=== PATIENT | female | born 1985 | race Caucasian/White ===

== ENCOUNTER 2020-08-28 14:31 | Outpatient (REF) | payer OTHER, SELFPAY ==
[2020-09-03 13:31] LABS: HPV mRNA E6/E7 rflx Not Detected (Not Detected)
== END 2020-08-28 14:32 | disposition home or self-care (01) ==
LOC: HO.LAB 14:31
PROVIDERS: PCP Internal Medicine; Visit Provider Obstetrics & Gynecology
DX: Z01.419 Encounter for gynecological examination (general) (routine) without abnormal findings (principal)
CPT/HCPCS: 36415; 87624; 88142

== ENCOUNTER 2020-12-29 00:31 | Emergency (ER) | payer OTHER, SELFPAY ==
--- NOTE | 2020-12-29 | ECG_ITS ---
Test Reason : CHEST PAIN Blood Pressure : / mmHG Vent. Rate : 072 BPM Atrial Rate : 072 BPM P-R Int : 122 ms QRS Dur : 078 ms QT Int : 414 ms P-R-T Axes : 057 024 009 degrees QTc Int : 453 ms Normal sinus rhythm Nonspecific ST and T wave abnormality Abnormal ECG When compared with ECG of 15-MAR-2017 21:49, No significant change was found Referred By: Generic ED Physician Electronically Signed By:MARIJA LUCIO
--- NOTE | ~2020-12-29 | US_ITS ---
EXAMINATION: US ABDOMEN LIMITED CLINICAL INFORMATION: Right upper quadrant pain for 4 hours.. COMPARISON: 09/29/2017 TECHNIQUE: Real-time imaging of the right upper quadrant abdominal viscera. FINDINGS: PANCREAS: Visualized portions unremarkable; tail obscured by interposed bowel gas. LIVER: Normal. The liver is normal in size. The liver contour is normal. Parenchymal echogenicity is normal. No focal hepatic lesion. There is no intrahepatic biliary duct dilatation seen. GALLBLADDER: Completely filled with gallstones exhibiting a wall echo shadow complex. No gallbladder wall thickening pericholecystic fluid. COMMON BILE DUCT: Normal in caliber measuring 0.4 cm in diameter. RIGHT KIDNEY: Normal. No hydronephrosis. No renal calculi or focal parenchymal lesions. The kidney measures 9.3 cm in maximum dimension. FREE FLUID: None. US/US abdomen limited IMPRESSION: * Cholelithiasis without sonographic evidence of cholecystitis. * There is tenderness to sonographic palpation within the right upper quadrant and epigastric region which is nonspecific.
[2020-12-29 00:45] VITALS: BP 123/69; PULSE 77; RESP 16; TEMP 36.8; O2SAT 99; BMI 25.9
[2020-12-29 01:05] VITALS: RESP 18
--- NOTE | 2020-12-29 01:17 | ED.CHESTPAIN ---
HPI - Chest Pain General Chief Complaint: Chest Pain Stated Complaint: chest pains for >3 hours Time Seen by Provider: 12/29/20 01:17 Source: patient Mode of arrival: ambulatory History of Present Illness HPI narrative: This is a 35-year-old female with known cholelithiasis and presents with severe epigastric pain with onset approximately 3 hours prior to arrival and she describes radiation along the subdiaphragmatic distribution bilaterally and states that this is sharp in nature and has occurred before. She states that these episodes typically occur approximately 2-3 hours after eating the evening meal. She denies any association with fever, chills, nausea, vomiting, and denies any urinary pain/burning/frequency. Patient states that she is completely asymptomatic at present. Related Data Home Medications Medication Instructions Recorded Confirmed levonorgestrel 20 mcg/24 hours (6 INTRAUTERINE 08/28/20 yrs) 52 mg intrauterine device Allergies Allergy/AdvReac Type Severity Reaction Status Date / Time No Known Allergies Allergy Mild NONE Verified 08/28/20 14:44 Flexeril AdvReac Unknown heart Uncoded 12/29/20 01:22 palpitations Review of Systems Review of Systems: Pertinent positives and negatives as stated in HPI 10 point review of systems is otherwise negative. PMFSH Past Medical History Source: nursing notes reviewed Medical History HGSIL (high grade squamous intraepithelial dysplasia) Social History Social History Smoked in Last 30 Days: No Use of substances other than those prescribed or required for medical reasons: No Advance Directives: No Advance Directives Information Provided: No Patient : No Physical Exam Vital Signs: Vital Signs: Last Vital Signs Temp 98.0 F 12/29/20 03:47 Pulse 78 12/29/20 03:47 Resp 18 12/29/20 03:47 BP 123/66 12/29/20 03:47 Pulse Ox 99 12/29/20 03:47 Body Mass Index 25.9 VITAL SIGNS: Reviewed. GENERAL: Well developed, well nourished, in no acute distress. HEAD: Normocephalic/atraumatic EYES: PERRLA, EOMI OROPHARYNX: no oral lesions noted, posterior pharynx clear NECK: Supple, no adenopathy LUNGS: Normal breath sounds. No adventitious sounds or accessory muscle use. SpO2<99> CARDIOVASCULAR: Regular rate and rhythm without noted murmurs ABDOMEN: Soft, non-tender, non-distended with bowel sounds. NEUROLOGIC: Alert and oriented x 4. Course Course Course Narrative: This is a 35-year-old female with history and clinical presentation suggestive of pancreatitis, cholecystitis, acid reflux/gastritis. On review of all investigations again is demonstrated cholelithiasis and the noted elevation of LFTs likely secondary to transient blockage that has since been relieved, patient is currently completely asymptomatic and there are no evidence of cholecystitis on ultrasound. Patient will be discharged home with strict instructions to follow-up with surgery to set up an elective removal of her gallbladder. MDM - Chest Pain Lab Data Result diagrams: 12/29/20 01:14 12/29/20 01:14 Labs: Lab Results 12/29/20 12/29/20 12/29/20 Range/Units 01:14 01:14 01:14 WBC 7.2 (4.8-10.8) X10*3/uL RBC 4.57 (4.20-5.50) X10*6/uL Hgb 14.2 (12.0-16.0) g/dl Hct 42.5 (37-47) % MCV 93.0 (80-98) fL MCH 31.1 (27.0-33.0) pg MCHC 33.4 (31.0-35.0) g/dl RDW 12.5 (11.0-16.0) % Plt Count 271 (160-400) X10*3/uL MPV 10.2 (9.4-12.3) fL Immature Gran % (Auto) 0.3 (0.0-0.4) % Neut % (Auto) 77.8 H (45-73) % Lymph % (Auto) 13.6 L (20-40) % Pitkin % (Auto) 7.1 (2-11) % Eos % (Auto) 0.6 (0-4) % Baso % (Auto) 0.6 (0-2) % Lymph # (Auto) 1.0 L (1.2-4.9) X10*3/uL Pitkin # (Auto) 0.5 (0.1-1.2) X10*3/uL Eos # (Auto) 0.0 (0.0-0.4) X10*3/uL Baso # (Auto) 0.0 (0.0-0.2) X10*3/uL Abs Immat Gran (auto) 0.02 (0.00-0.03) X10*3/uL Absolute Neuts (auto) 5.6 (2.0-8.3) X10*3/uL Absolute Nucleated RBC 0.000 (0.0-0.012) X10*3/uL Nucleated RBC % (auto) 0.0 (0.0-0.2) /100WBC Sodium 142 (135-145) mmol/L Potassium 3.8 (3.3-5.1) mmol/L Chloride 104 (96-108) mmol/L Carbon Dioxide 29 (22-29) mmol/L Anion Gap 13 (12-20) BUN 9 (9-16) mg/dL Creatinine 0.93 (0.5-1.4) mg/dL Estim Creat Clear Calc 67.8 Estimated GFR > 60 Random Glucose 113 (60-115) mg/dL Calcium 9.6 (8.4-10.2) mg/dL Total Bilirubin 1.1 H (0.0-1.0) mg/dL AST 215 H (5-31) U/L ALT 114 H (0-31) U/L Alkaline Phosphatase 96 (39-117) U/L Troponin I High Sens < 3.5 (<3.5-17.0) ng/L Total Protein 7.5 (6.5-8.0) g/dL Albumin 4.5 (3.5-5.0) g/dL Lipase 39 (8-78) U/L Urine Color Urine Appearance Urine pH (5.0-8.0) Ur Specific [place] (1.005-1.025) Urine Protein (NEG-TRACE) MG/DL Urine Glucose (UA) (NEG) MG/DL Urine Ketones (NEG) MG/DL Urine Blood (NEG) Urine Nitrite (NEG) Ur Leukocyte Esterase (NEG) Urine Test (NEGATIVE) 12/29/20 12/29/20 Range/Units 03:45 03:45 WBC (4.8-10.8) X10*3/uL RBC (4.20-5.50) X10*6/uL Hgb (12.0-16.0) g/dl Hct (37-47) % MCV (80-98) fL MCH (27.0-33.0) pg MCHC (31.0-35.0) g/dl RDW (11.0-16.0) % Plt Count (160-400) X10*3/uL MPV (9.4-12.3) fL Immature Gran % (Auto) (0.0-0.4) % Neut % (Auto) (45-73) % Lymph % (Auto) (20-40) % [place]kin % (Auto) (2-11) % Eos % (Auto) (0-4) % Baso % (Auto) (0-2) % Lymph # (Auto) (1.2-4.9) X10*3/uL [place]kin # (Auto) (0.1-1.2) X10*3/uL Eos # (Auto) (0.0-0.4) X10*3/uL Baso # (Auto) (0.0-0.2) X10*3/uL Abs Immat Gran (auto) (0.00-0.03) X10*3/uL Absolute Neuts (auto) (2.0-8.3) X10*3/uL Absolute Nucleated RBC (0.0-0.012) X10*3/uL Nucleated RBC % (auto) (0.0-0.2) /100WBC Sodium (135-145) mmol/L Potassium (3.3-5.1) mmol/L Chloride (96-108) mmol/L Carbon Dioxide (22-29) mmol/L Anion Gap (12-20) BUN (9-16) mg/dL Creatinine (0.5-1.4) mg/dL Estim Creat Clear Calc Estimated GFR Random Glucose (60-115) mg/dL Calcium (8.4-10.2) mg/dL Total Bilirubin (0.0-1.0) mg/dL AST (5-31) U/L ALT (0-31) U/L Alkaline Phosphatase (39-117) U/L Troponin I High Sens (<3.5-17.0) ng/L Total Protein (6.5-8.0) g/dL Albumin (3.5-5.0) g/dL Lipase (8-78) U/L Urine Color YELLOW Urine Appearance CLEAR Urine pH 8.5 H (5.0-8.0) Ur Specific [place] 1.015 (1.005-1.025) Urine Protein NEG (NEG-TRACE) MG/DL Urine Glucose (UA) NEG (NEG) MG/DL Urine Ketones NEG (NEG) MG/DL Urine Blood NEG (NEG) Urine Nitrite NEG (NEG) Ur Leukocyte Esterase NEG (NEG) Urine Test NEGATIVE (NEGATIVE) ECG Data ECG #1: Attestation: I personally reviewed and interpreted this ECG as follows: Prior ECG tracings: available for review (03/15/2017 no acute changes on comparison) Interpretation: Normal sinus rhythm, HR-72, no evidence of acute ischemia, TX/QRS/QTC are within normal limits Discharge Plan Discharge Clinical Impression: Cholelithiasis, Biliary colic Patient Disposition: Home, Self-Care Instructions: Biliary Colic (ED), Gallstones (ED) Additional Instructions: 1. Resume all home medications as prescribed. 2. Increase your fluid hydration especially with water and avoid all fatty meals as much as possible. 3. Recommend following up with surgery, a referrals provided to you below for planned removal of your gallbladder. 4. Please follow-up with your primary care provider in the next 2-3 days for re-evaluation. Return to the ER for acute worsening of symptoms. Prescriptions: No Action Mirena 20 mcg/24 hours (6 yrs) 52 mg intrauterine device intrauterine RF: 0 Referrals: Vero Rabago MD [Primary Care Provider] - 2 days John Pedroza MD [Physician] - 2 days (Patient with cholelithiasis that would likely benefit from elective cholecystectomy.)
[2020-12-29 01:19] LABS: MANUAL DIFF FLAG NO
[2020-12-29 01:20] LABS: Basophils Percent Auto 0.6 % (0-2); Eosinophils Percent Auto 0.6 % (0-4); Hematocrit 42.5 % (37-47); Hemoglobin 14.2 g/dl (12.0-16.0); Imm Gran Abs Auto 0.02 X10*3/uL (0.00-0.03); Imm Gran Pct Auto 0.3 % (0.0-0.4); Lymphocytes Percent Auto 13.6 % (20-40); Mean Corpuscular HGB Conc 33.4 g/dl (31.0-35.0); Mean Corpuscular Hemoglobin 31.1 pg (27.0-33.0); Mean Platelet Volume 10.2 fL (9.4-12.3); Monocytes Absolute Auto 0.5 X10*3/uL (0.1-1.2); Monocytes Percent Auto 7.1 % (2-11); Neutrophils Absolute Auto 5.6 X10*3/uL (2.0-8.3); Neutrophils Percent Auto 77.8 % (45-73); Platelet Count 271 X10*3/uL (160-400); Red Blood Count 4.57 X10*6/uL (4.20-5.50); Red Cell Distribution Width 12.5 % (11.0-16.0); White Blood Count 7.2 X10*3/uL (4.8-10.8)
[2020-12-29 01:53] LABS: Alanine Aminotransferase 114 U/L (0-31); Albumin Level 4.5 g/dL (3.5-5.0); Alkaline Phosphatase 96 U/L (39-117); Anion Gap 13 (12-20); Aspartate Amino Transferase 215 U/L (5-31); Bilirubin Total 1.1 mg/dL (0.0-1.0); Blood Urea Nitrogen 9 mg/dL (9-16); Calcium 9.6 mg/dL (8.4-10.2); Carbon Dioxide 29 mmol/L (22-29); Chloride 104 mmol/L (96-108); Creatinine Clr Calc Pharmacy 67.8; Estimated Glomerular Filt Rate > 60; Glucose Random 113 mg/dL (60-115); Potassium 3.8 mmol/L (3.3-5.1); Sodium 142 mmol/L (135-145); Total Protein 7.5 g/dL (6.5-8.0)
[2020-12-29 01:54] LABS: Troponin-I High Sensitivity < 3.5 ng/L (<3.5-17.0)
[2020-12-29 02:30] LABS: Lipase 39 U/L (8-78)
[2020-12-29 03:47] VITALS: BP 123/66; PULSE 78; RESP 18; TEMP 36.7; O2SAT 99
[2020-12-29 03:52] LABS: Glucose Urine UA NEG (NEG); Leukocyte Esterase Urine NEG (NEG); Nitrite Urine NEG (NEG); PH 8.5 (5.0-8.0); Specific Gravity - Urine 1.015 (1.005-1.025); Urine Blood NEG (NEG); Urine Ketones NEG (NEG); Urine Protein NEG (NEG-TRACE)
[2020-12-29 03:53] LABS: Appearance Urine CLEAR; Color Urine YELLOW
[2020-12-29 03:54] LABS: UPreg QC Valid YES; Urine Pregnancy NEGATIVE (NEGATIVE)
[2020-12-29] MEDS: Magnesium Hydrox/Alum Hydrox 30 ML ORAL.SUSP PO (04:41)
== END 2020-12-29 04:51 | disposition home or self-care (01) ==
PROVIDERS: Emergency Provider Student in an Organized Health Care Education/Training Program; PCP Internal Medicine
DX: K80.70 Calculus of gallbladder and bile duct without cholecystitis without obstruction (principal)
CPT/HCPCS: 36415; 76705; 80053; 81003; 81025; 83690; 84484; 85025; 93005; 99284; 99285

== ENCOUNTER → 2021-01-14 15:36 | Outpatient (BNVA) | payer OTHER, SELFPAY | PROVIDERS: PCP Internal Medicine; Visit Provider Surgery | DX: K80.20 Calculus of gallbladder without cholecystitis without obstruction (principal) | CPT/HCPCS: 99202 ==

== ENCOUNTER 2021-01-29 06:07 | Day surgery (SDC) | payer OTHER, SELFPAY ==
[2021-01-22 13:12] VITALS: BMI 27.8
--- NOTE | 2021-01-28 08:26 | HO.ANESPROP2 ---
Documented by User: Vaishali Schuster 01/28/21 08:28 HPI - Anesthesia Eval Consult details Narrative: 35yo F for Cholecystectomy Laparoscopic PMFSH Active Problems Active Problems: All Active Problems (Updated 01/15/21 @ 13:05 by John Pedroza MD) Well woman exam (Acute) Symptomatic cholelithiasis (Acute) Past Medical History Medical History HGSIL (high grade squamous intraepithelial dysplasia) PVC (premature ventricular contraction) Surgical History Surgical History H/O LEEP Social History Social History Alcohol intake: current Alcohol intake frequency: holidays/special occasions only Are you DNR?: No Advance Directives: No Advance Directives Information Provided: No Advance Directives on File: No Meds Allergies Allergy/AdvReac Type Severity Reaction Status Date / Time Flexeril AdvReac Unknown Nausea Uncoded 01/29/21 06:26 Home Medications Medication Instructions Recorded Confirmed Last Taken Type levonorgestrel 20 mcg/24 hours (6 INTRAUTERINE 08/28/20 Unknown History yrs) 52 mg intrauterine device lorazepam 1 tab PO NEEDED 01/22/21 01/22/21 Unknown History Exam Exam Date and Time: January 28, 2021 0826 Height,Weight and Vital Signs: Height 4 ft 11 in Weight 62.454 kg Pertinent Lab Results Pertinent Lab Results: Laboratory Tests 12/29/20 12/29/20 01:14 01:14 WBC 7.2 Hgb 14.2 Hct 42.5 Plt Count 271 Sodium 142 Potassium 3.8 Chloride 104 Carbon Dioxide 29 BUN 9 Creatinine 0.93 Narrative Narrative: EKG 12/2020 Vent. Rate : 072 BPM Atrial Rate : 072 BPM P-R Int : 122 ms QRS Dur : 078 ms QT Int : 414 ms P-R-T Axes : 057 024 009 degrees QTc Int : 453 ms Normal sinus rhythm Nonspecific ST and T wave abnormality Abnormal ECG When compared with ECG of 15-MAR-2017 21:49, No significant change was found Assessment and Plan Assessment Anesthesia Assessment: Chart Reviewed Documented by User: Sera Kay 01/29/21 07:51 PMFSH Past Medical History Medical History HGSIL (high grade squamous intraepithelial dysplasia) PVC (premature ventricular contraction) Surgical History Surgical History H/O LEEP Social History Social History Alcohol intake: current Alcohol intake frequency: holidays/special occasions only Are you DNR?: No Advance Directives: No Advance Directives Information Provided: No Advance Directives on File: No Meds Allergies Allergy/AdvReac Type Severity Reaction Status Date / Time Flexeril AdvReac Unknown Nausea Uncoded 01/29/21 06:26 Home Medications Medication Instructions Recorded Confirmed Last Taken Type levonorgestrel 20 mcg/24 hours (6 INTRAUTERINE 08/28/20 Unknown History yrs) 52 mg intrauterine device lorazepam 1 tab PO NEEDED 01/22/21 01/22/21 Unknown History Exam Airway Mallampati Class: II TM Dist: <=3cm Neck ROM: Full Assessment and Plan Assessment Anesthesia Assessment: Anesthesia Plan Discussed and Chart Reviewed Final Anesthetic Review NPO: Yes ASA Class: II Final Preanesthetic Review: No Changes in Pt Med Stat, Meds/Allgs Chart Reviewed, Consent Obtained/Reviewed and Anes Risks/Benef Reviewed Patient Risk: Low Procedure Risk: Low Assessment/Block/Sedation in SS: Assess/Block/Sedation-SS Anesthetic Plan Anesthetic Plan: GA Disposition: Standard PACU
[2021-01-29 06:31] VITALS: BP 128/75; PULSE 75; RESP 16; TEMP 36.3; O2SAT 98
[2021-01-29 06:40] LABS: UPreg QC Valid YES; Urine Pregnancy NEGATIVE (NEGATIVE)
[2021-01-29] MEDS: Lactated Ringers 1,000 ML 100 ML IVCONT (06:45)
--- NOTE | 2021-01-29 07:10 | MHC.SHP ---
Pre-Procedural Eval Section A Date of Service: 01/29/21 The patient is an INPATIENT: No Changes since office visit: Yes Patient answered all questions; No Cold of Flu in the past 2 weeks, No New Medical Problems and No Changes in Medication The History & Physical has been completed within 30 days and I have reviewed it.: Yes Section B Chief Complaint: Symptomatic Cholelithiasis Allergies: Allergies Allergy/AdvReac Type Severity Reaction Status Date / Time Flexeril AdvReac Unknown Nausea Uncoded 01/29/21 06:26 Plan Diagnosis/Plan: Unchanged I have reviewed the history and physical and performed a pertinent physical examination on my patient. No changes have occurred unless specified.
--- NOTE | 2021-01-29 09:01 | P.OP_ITS ---
Operative Note Operative Note Date of Service: 01/29/21 Narrative: Preoperative diagnosis: Symptomatic cholelithiasis Postoperative diagnosis: Acute cholecystitis, cholelithiasis; right upper quadrant adhesions Procedure: Laparoscopic cholecystectomy Surgeon: John Pedroza MD Irrigation Specialist: No physician Anesthesia: General endotracheal Indications for procedure: 35-year-old female patient presenting with complaints of abdominal pain in the right upper quadrant associated with fatty food intake. The patient underwent evaluation with ultrasound which revealed gallstones within the gallbladder. Findings were suggestive of symptomatic cholelithiasis. Operative findings: Patient was found to have dense adhesions to the liver from the mesentery of the transverse colon which required lysis. The gallbladder was edematous with an impacted stone at the neck of the gallbladder. Specimen: Gallbladder Estimated blood loss: 10 mL Complications: None Procedure details: Patient was brought to the OR and placed in a supine position. After administering general anesthesia the patient's abdomen was prepped with ChloraPrep and draped in a sterile fashion. Local anesthesia consisting of 0.25% Sensorcaine with epinephrine was infiltrated in a periumbilical region. A 5 mm incision was made above the umbilicus in a transverse fashion. The Veress needle was then inserted while elevating abdominal cavity with towel clips. After positive drop test the abdomen was insufflated to a pressure of 15 mm of mercury. The Veress needle was then removed and a 5 mm trocar inserted. The camera was inserted in the abdomen explored. Dense adhesions were noted to the anterior abdominal wall and liver edge. These were taken down using LigaSure. Adhesions to the gallbladder were then dissected using the Dolphin dissector. A 12 mm trocar was then placed in the epigastrium and two 5 mm trocars placed in the right upper quadrant. The patient was placed in reverse Trendelenburg positioning and rotated to the left. The gallbladder was grasped with the fundus and retracted cephalad.. The infundibulum Was then grasped and retracted away from the liver bed. The Dolphin dissected was then used to dissect the peritoneum off the infundibulum to reveal the junction with the cystic duct. Cystic artery was noted slightly medial and posterior to the cystic duct. After obtaining a critical view the cystic duct was doubly clipped and divided. The cystic artery was then doubly clipped and divided. A larger posterior branch was identified and doubly ligated and divided. The gallbladder was then dissected off the liver bed using electrocautery with an L hook. Hemostasis was assured all times using the electrocautery. When the gallbladder is completely dissected off the liver bed was placed in an Endo- Catch bag and brought out through the epigastric incision. The gallbladder was sent to pathology for further examination. The abdomen was then re-examined. The liver bed was irrigated and suctioned dry. No bleeding or bile leak could be identified. CO2 was then evacuated and all trocars removed. Fascia was closed at the epigastric incision using a [id number] Polysorb suture. Skin was closed in all incisions using a subcuticular 4 0 Polysorb suture. Sterile dressings consisting of Steri-Strips, 2 x 2 gauze, and Tegaderm were then applied. The patient tolerated the procedure well. Sponge instrument and needle counts reported as correct. The patient was transferred to PACU in stable condition.
[2021-01-29 09:03] VITALS: BP 142/86; PULSE 95; RESP 16; TEMP 36.2; O2SAT 97
[2021-01-29 09:08] VITALS: BP 130/77; PULSE 79; RESP 16; O2SAT 97
[2021-01-29 09:13] VITALS: BP 122/74; PULSE 72; RESP 16; O2SAT 96
[2021-01-29 09:18] VITALS: BP 125/72; PULSE 67; RESP 16; O2SAT 96
--- NOTE | 2021-01-29 09:28 | PC.NURSE ---
Patient's post-op rhythm strip obtained and posted. When compared to pre-op strip, T wave observed to be inverted. Dr. Avila notified. No concerns at this time, no new orders. Patient okay to be discharged.
[2021-01-29 09:33] VITALS: BP 121/68; PULSE 73; RESP 16; TEMP 36.1; O2SAT 96
[2021-01-29] MEDS: Acetaminophen 325 MG TABLET 650 MG PO (09:46)
== END 2021-01-29 10:22 | disposition home or self-care (01) ==
PROVIDERS: Nurse Practitioner; PCP Internal Medicine; Visit Provider Surgery
PROC: 0FT44ZZ Resection of Gallbladder, Percutaneous Endoscopic Approach (ICD-10-PCS; CPT 47562; principal; 2021-01-29 07:30)
DX: K80.12 Calculus of gallbladder with acute and chronic cholecystitis without obstruction (principal); K82.8 Other specified diseases of gallbladder; K66.0 Peritoneal adhesions (postprocedural) (postinfection); I49.3 Ventricular premature depolarization; Z79.899 Other long term (current) drug therapy; Z88.8 Allergy status to other drugs, medicaments and biological substances
CPT/HCPCS: 47562; 81025; 88304; J1100; J1885; J2250; J2405; J3010

== ENCOUNTER → 2021-02-06 11:17 | Outpatient (BNVA) | payer OTHER, SELFPAY | PROVIDERS: PCP Internal Medicine; Referring Provider Internal Medicine; Visit Provider Surgery | DX: K80.00 Calculus of gallbladder with acute cholecystitis without obstruction (principal) | CPT/HCPCS: 99212 ==

== ENCOUNTER 2021-07-23 08:07 | Outpatient (REF) | payer OTHER, SELFPAY ==
[2021-07-23 16:06] LABS: CT PCR NOT DETECTED (Not Detect.); NG PCR NOT DETECTED (Not Detect.)
[2021-07-24 09:11] LABS: BV Int Neg Control Negative (Negative); BV Int Pos Control Positive (Positive)
== END 2021-07-23 08:08 | disposition home or self-care (01) ==
LOC: HO.LAB 08:07
PROVIDERS: PCP Internal Medicine; Visit Provider Obstetrics & Gynecology
DX: Z01.419 Encounter for gynecological examination (general) (routine) without abnormal findings (principal); Z20.2 Contact with and (suspected) exposure to infections with a predominantly sexual mode of transmission; B37.3 Candidiasis of vulva and vagina
CPT/HCPCS: 87480; 87491; 87510; 87591; 87660; 99212

== ENCOUNTER 2021-07-25 13:06 | Outpatient (REF) | payer OTHER, SELFPAY ==
[2021-07-25 14:15] LABS: Syphilis Screen Nonreactive (Nonreactive)
[2021-07-28 05:10] LABS: HBsAGNum1 0.28 S/CO (0.00-0.99); Hepatitis B Surface Antigen Negative (Negative)
[2021-07-28 05:49] LABS: HIV AB/AG Nonreactive (Nonreactive); HIV Num 1 0.08 S/CO (0.00-0.99); ~HepC Num1 0.15 S/CO (0.00-0.79); ~Hepatitis C Antibody Nonreactive (Nonreactive)
== END 2021-07-25 13:07 | disposition home or self-care (01) ==
LOC: HO.LAB 13:06
PROVIDERS: Visit Provider Obstetrics & Gynecology
DX: N76.0 Acute vaginitis (principal); B96.89 Other specified bacterial agents as the cause of diseases classified elsewhere
CPT/HCPCS: 36415; 86780; 86803; 87340; 87389

== ENCOUNTER → 2021-10-21 15:00 | Outpatient (BNVA) | payer OTHER, SELFPAY | PROVIDERS: PCP Internal Medicine; Visit Provider Obstetrics & Gynecology | DX: Z01.419 Encounter for gynecological examination (general) (routine) without abnormal findings (principal) ==

== ENCOUNTER → 2021-11-05 15:38 | Outpatient (BNVA) | payer OTHER, SELFPAY | PROVIDERS: Visit Provider Obstetrics & Gynecology | DX: F39 Unspecified mood [affective] disorder (principal) ==

== ENCOUNTER → 2022-10-27 14:24 | Outpatient (BNVA) | payer OTHER, SELFPAY | PROVIDERS: Visit Provider Obstetrics & Gynecology ==

== ENCOUNTER 2023-11-02 08:16 | Outpatient (AMB) | payer OTHER, SELFPAY ==
[2023-11-02 08:22] VITALS: BP 100/62; BMI 28.1
--- NOTE | 2023-11-02 08:22 | MHC.OFFVIS ---
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 No complaints. Last Pap/HPV was negative in 09/01 [facility] Medical History PVC (premature ventricular contraction) HGSIL (high grade squamous intraepithelial dysplasia) Surgical History H/O LEEP Social History Household Members Other:: daughter Housing: House Alcohol intake: current Alcohol intake frequency: holidays/special occasions only Comment: Medicated with PRN Tylenol Patient Tobacco Use Status: Never used Tobacco Current occupational status: employed Current occupation: [employer] in [employer] Sexual orientation: Straight/Heterosexual Gender identity: Female Female Reproductive History Menstrual Age of Menarche: 12 Duration of menses: 6-7 days control method: progestin IUCD Total pregnancies: 1 Full term: 1 Number of Living Children: 1 Date of last pap smear: 08/29/20 (negative) History of abnormal pap smear: Yes Review of Systems Const All systems reviewed & are unremarkable except as noted in HPI and below Card Reports as per HPI Resp Reports as per HPI GI Reports as per HPI and Reports no additional complaints Reports as per HPI Physical Exam Vital Signs: Last Vital Signs BP 100/62 11/02/23 08:22 BMI result Body Mass Index 28.1 Const General: cooperative, healthy appearing and comfortable Chest Chest palpation & inspection: normal inspection of the chest and normal palpation of entire chest wall Breast/axilla inspection: normal inspection of the breasts and normal inspection of the axillae Breast/axilla palpation: normal palpation of the breasts, normal palpation of the axillae and no axillary lymphadenopathy Resp Effort & Inspection: normal respiratory effort Auscultation: clear to auscultation bilaterally Percussion: percussion normal Cardio Palpation: normal PMI Rate: regular rate Rhythm: regular rhythm Heart sounds: no murmurs and no rubs Peripheral pulses: Peripheral pulses 2+ throughout GI Inspection: Yes normal to inspection Palpation (GI): Soft to palpation, nontender, no guarding, not rigid and No hepatosplenomegaly present Percussion: Yes normal to percussion Auscultation: normal bowel sounds Rectal Exam - Female: deferred General: Yes bladder normal to palpation External Female Exam: No lesion Speculum Exam - Vagina: normal appearance of the vagina, normal palpation, normal vaginal discharge and not erythematous Speculum Exam - Cervix: normal appearance of the cervix, normal palpation and Other cervical findings present (no iud strind seen) Bimanual exam- vagina & uterus: normal bimanual exam, normal palpation, uterine size normal, bladder normal to palpation, consistency normal and normal palpation Bimanual Exam- Adnexa, other: normal adnexae, no masses and no tenderness Assessment & Plan Assessment & Plan (1) Well woman exam: Comment: History of high-grade JAMES status post LEEP in 07/27 Code(s): Z01.419 - Encounter for gynecological examination (general) (routine) without abnormal findings Category: Medical Plan: Cotesting done. Counseled the patient about the recommended dietary allowance of 1000 mg of Calcium & 600 IU of vitamin D. The patient was instructed to perform monthly self-breast exams and to schedule an annual exam in a year; All questions answered and the patient verbalized understanding. Instructed the patient to schedule annual exam in a year (2) IUD strings lost: Code(s): T83.32XA - Displacement of intrauterine contraceptive device, initial encounter Category: Medical Plan: Discussed with the patient the finding on pelvic exam, no IUD string identified, will order pelvic ultrasound. Instructions given the patient to schedule a 2 week ultrasound follow-up appointment. All questions answered, the patient verbalized understanding. Orders: Orders US pelvic and transvaginal Today T83.32XA - Displacement of intrauterine contraceptive device, initial encounter
== END 2023-11-02 09:08 | disposition home or self-care (01) ==
PROVIDERS: Visit Provider Obstetrics & Gynecology
DX: Z01.419 Encounter for gynecological examination (general) (routine) without abnormal findings (principal); T83.32XA Displacement of intrauterine contraceptive device, initial encounter
CPT/HCPCS: 99395

== ENCOUNTER 2023-11-02 08:16 | Outpatient (REF) | payer OTHER, SELFPAY ==
[2023-11-09 06:49] LABS: HPV mRNA E6/E7 rflx Not Detected (Not Detected)
== END 2023-11-02 08:17 | disposition home or self-care (01) ==
LOC: HO.LNP 08:16
PROVIDERS: Advanced Practice Midwife; Visit Provider Obstetrics & Gynecology
DX: Z01.419 Encounter for gynecological examination (general) (routine) without abnormal findings (principal); Z12.4 Encounter for screening for malignant neoplasm of cervix
CPT/HCPCS: 87624; 88142; 99395

== ENCOUNTER 2023-11-10 12:46 | Outpatient (REF) | payer OTHER, SELFPAY ==
--- NOTE | ~2023-11-10 | US_ITS ---
EXAMINATION: US PELVIS CLINICAL INFORMATION: Check IUD placement. COMPARISON: Pelvic ultrasound 07/14/2018. TECHNIQUE: Ultrasound of the pelvis is performed using both transabdominal and transvaginal transducers along with Doppler. Transvaginal imaging is performed due to inadequate visualization transabdominally. FINDINGS: Uterus: The uterus is anteverted and measures 8.3 x 3.8 x 4.6 cm. Endometrial stripe measures 3 mm in thickness. The IUD appears appropriately positioned in the endometrial canal. The uterus is smooth in contour and has normal myometrial echogenicity. No visible fibroid. Adnexa: The right ovary measures 2.0 x 1.2 x 1.7 cm, volume 2.1 mL. The right ovary appears normal. Left ovary measures 3.5 x 2.1 x 1.9 cm, volume 7.3 mL. A 1.7 cm physiologic cyst is seen in the left ovary. No imaging follow-up is recommended. There is no free fluid in the pelvis. US/US pelvic and transvaginal IMPRESSION: IUD appears appropriately positioned.
== END 2023-11-10 12:47 | disposition home or self-care (01) ==
LOC: HO.US 12:46
PROVIDERS: Visit Provider Obstetrics & Gynecology
DX: T83.32XA Displacement of intrauterine contraceptive device, initial encounter (principal)
CPT/HCPCS: 76830; 76856

== ENCOUNTER 2023-11-24 13:51 | Outpatient (AMB) | payer OTHER, SELFPAY ==
--- NOTE | 2023-11-24 13:53 | A.OFFVIS_ITS ---
Vital Signs 11/24/23 13:55 Height 4 ft 11 in Weight 138 lb 14.259 oz BMI 28.0 BP 108/66 Intake Visit Reasons: Ultrasound follow up [employer] Required: No Information Interpreted: non-clinical & clinical Accompanied by: Daughter Allergies Flexeril Adverse Reaction (Unknown, Uncoded 11/24/23 13:56) Nausea Is last menstrual period known: No (mirena) HPI Comments Details: Presenting for ultrasound follow-up regarding lost IUD strings on pelvic exam. Mirena IUD was inserted on 10/24/19 Pelvic ultrasound showed the following: Uterus: The uterus is anteverted and measures 8.3 x 3.8 x 4.6 cm. Endometrial stripe measures 3 mm in thickness. The IUD appears appropriately positioned in the endometrial canal. The uterus is smooth in contour and has normal myometrial echogenicity. No visible fibroid. Adnexa: The right ovary measures 2.0 x 1.2 x 1.7 cm, volume 2.1 mL. The right ovary appears normal. Left ovary measures 3.5 x 2.1 x 1.9 cm, volume 7.3 mL. A 1.7 cm physiologic cyst is seen in the left ovary. No imaging follow-up is recommended. There is no free fluid in the pelvis. PFSH Medical History PVC (premature ventricular contraction) HGSIL (high grade squamous intraepithelial dysplasia) Surgical History H/O LEEP Social History Household Members Other:: daughter Housing: House Alcohol intake: current Alcohol intake frequency: holidays/special occasions only Comment: Medicated with PRN Tylenol Patient Tobacco Use Status: Never used Tobacco Current occupational status: employed Current occupation: [employer] in [employer] Sexual orientation: Straight/Heterosexual Gender identity: Female Female Reproductive History Menstrual Age of Menarche: 12 Physical Exam Vital Signs: Last Vital Signs BP 108/66 11/24/23 13:55 BMI result Body Mass Index 28.0 Assessment & Plan Assessment & Plan (1) IUD (intrauterine device) in place: Code(s): Z97.5 - Presence of (intrauterine) contraceptive device Category: Social Hx Plan: Discussed with the patient the results of pelvic ultrasound showing IUD in appropriate position, remind the patient that date of IUD insertion on 10/24/2019, recommended to use no later than 10/24/2027 for control. All questions answered, the patient verbalized understanding Coding Level of Care Code Est Pt Level 3 (11606) Diagnoses IUD (intrauterine device) in place Z97.5
[2023-11-24 13:55] VITALS: BP 108/66; BMI 28.0
== END 2023-11-24 15:29 | disposition home or self-care (01) ==
PROVIDERS: Visit Provider Obstetrics & Gynecology
DX: Z97.5 Presence of (intrauterine) contraceptive device (principal)
CPT/HCPCS: 99213

== ENCOUNTER → 2023-11-24 13:51 | Outpatient (BNVA) | payer OTHER, SELFPAY | PROVIDERS: Visit Provider Obstetrics & Gynecology | DX: Z97.5 Presence of (intrauterine) contraceptive device (principal) | CPT/HCPCS: 99212 ==